=== PATIENT | female | born 1940 | race Caucasian/White ===

== ENCOUNTER 2017-11-05 11:52 | Emergency (ER) | payer MEDICARE, BC, OTHER ==
--- NOTE | 2017-11-05 12:19 | Emergency Department Record ---
History of Present Illness - General Chief complaint: Flu Like Symptoms Stated complaint: CONGESTION/BODY ACHES/SORE THROAT Time Seen by Provider: 11/05/17 12:03 Source: Patient Mode of Arrival: Ambulatory Limitations: No limitations - History of Present Illness Initial comments: The patient is here due to having a cough, nasal congestion, ST, runny nose and body aches for 5 days. She denies any fever or SOB but does have a SHARPE with the cough. MD Complaint: Generalized weakness Onset/Timin -: Days(s) Severity: Moderate Severity scale (1-10): 5 Quality: Aching Consistency: Constant - Gordon Coma Scale Eye Response: (4) Open spontaneously Motor Response: (6) Obeys commands Verbal Response: (5) Oriented Gordon Total: 15 - Related Data Home Medications Medication Instructions Recorded Confirmed Last Taken Bimatoprost [Lumigan] 2.5 ml OP DAILY 11/05/17 11/05/17 1 Day Ago ~11/04/17 Previous Rx's Medication Instructions Recorded Oseltamivir Phosphate [Tamiflu] 75 mg PO BID #10 capsule 11/05/17 Allergies Allergy/AdvReac Type Severity Reaction Status Date / Time azithromycin Allergy VOMITING Verified 11/05/17 12:03 [From Zithromax Z-James] clarithromycin [From Biaxin] Allergy PT UNSURE Verified 11/05/17 12:03 OF REACTION sulfamethoxazole Allergy SWELLING Verified 11/05/17 12:03 [From Bactrim] OF THE LIPS trimethoprim [From Bactrim] Allergy SWELLING Verified 11/05/17 12:03 OF THE LIPS Travel Screening - Travel/Exposure Within Last 30 Days Have you traveled within the last 30 days?: No - Travel/Exposure Within Last Year Have you traveled outside the [place] in the last year?: No - Additonal Travel Details Have you been exposed to anyone with a communicable illness?: No - Travel Symptoms Symptom Screening: None Review of Systems Constitutional: Reports: Malaise. Denies: Chills, Fever Eyes: Denies: Eye discharge ENT: Reports: Congestion Respiratory: Reports: Cough. Denies: Dyspnea Past Medical History - SOCIAL HISTORY Smoking Status: Never smoker Alcohol Use: None Drug Use: None - RESPIRATORY Hx Respiratory Disorders: No - CARDIOVASCULAR Hx Cardio Disorders: No - NEURO Hx Neuro Disorders: No - GI Hx GI Disorders: Yes Hx of Polyps: Yes - Hx Genitourinary Disorders: No - ENDOCRINE Hx Endocrine Disorders: No - MUSCULOSKELETAL Hx Musculoskeletal Disorders: Yes Hx Arthritis: Yes - PSYCH Hx Psych Problems: No - HEMATOLOGY/ONCOLOGY Hx Hematology/Oncology Disorders: Yes Hx Cancer: Yes (skin cancer-nose) Comment:: Squamous cell Family Medical History Any Significant Family History?: Yes Hx Cancer: Mother, Brother/Sister *Cancer Comment: Colon Physical Exam - General General Appearance: Alert, Oriented x3, Cooperative, No acute distress - Head Head exam: Atraumatic, Normocephalic, Normal inspection - Eye Eye exam: Normal appearance, PERRL - ENT Throat exam: Tonsillar erythema. negative: Normal inspection, Tonsillomegaly, Tonsillar exudate - Neck Neck exam: Normal inspection, Full ROM. negative: Tenderness - Respiratory Respiratory exam: Normal lung sounds bilaterally. negative: Respiratory distress - Cardiovascular Cardiovascular Exam: Regular rate, Normal rhythm, Normal heart sounds - GI/Abdominal GI/Abdominal exam: Soft, Normal bowel sounds. negative: Tenderness - Extremities Extremities exam: Normal inspection, Full ROM, Normal capillary refill. negative: Tenderness Course Vital Signs 11/05/17 11:55 Temperature 98.6 F Pulse Rate 65 Respiratory 18 Rate Blood Pressure 154/83 Pulse Ox 98 - Reevaluation(s) Reevaluation #1: The patient is doing very well at this time. I did discuss the positive Flu B with the patient and the neg CXR. I also did discuss the case with Dr. Lau and he would like the patient to be prescribed Tamiflu. 11/05/17 13:27 Medical Decision Making - Data Complexity MDM Data: Labs Ordered and/or Reviewed (Flu: B +), X-Ray Ordered and/or Reviewed - Radiology Data Radiology results: Report reviewed (CXR: Neg) Disposition Disposition: Discharge Clinical Impression: Influenza B Disposition: Home, Self-Care Condition: (2) Stable Instructions: Influenza (ED) Additional Instructions: Please drink plenty of fluids and take the Tamiflu as directed. Use Tylenol and Motrin for pain and fever. Please see your PCP in 2-3 days and return to the ER for any worsening symptoms. Prescriptions: Oseltamivir Phosphate [Tamiflu] 75 mg PO BID #10 capsule Forms: Patient Portal Access Time of Disposition: 13:26 Quality - Quality Measures Quality Measures: N/A - Blood Pressure Screening View Details: Yes Does Patient Have Any of the Following: No Blood Pressure Classification: Pre-Hypertensive BP Reading Systolic Measurement: 154 Diastolic Measurement: 83 Screening for High Blood Pressure: < Pre-Hypertensive BP, F/U Documented > [ G8950] Pre-Hypertensive Follow-up Interventions: Referral to alternative/primary care provider.
[2017-11-05 12:22] LABS: INFLUENZA A NEGATIVE (NEGATIVE); INFLUENZA B POSITIVE (NEGATIVE)
--- NOTE | 2017-11-06 08:44 | RADIOLOGY REPORT ---
EXAM: CHEST, TWO VIEWS HISTORY: COUGH. TESTED POSITIVE FOR INFLUENZA B. TECHNIQUE: Upright PA and lateral views of the chest were obtained. Comparison: None. FINDINGS: The heart is not enlarged and the pulmonary vasculature is nondilated. The thoracic aorta is tortuous and atherosclerotic. The lungs and pleural spaces are clear. The lungs do appear mildly hyperinflated consistent with COPD. Mild degenerative changes scattered within the visualized spine. There is dextroconvex scoliosis of the lumbar spine. IMPRESSION: HYPERINFLATION OF THE LUNGS CONSISTENT WITH COPD. NO LUNG CONSOLIDATION, PLEURAL EFFUSION OR PNEUMOTHORAX. JOB NUMBER: [id number] [facility]
== END 2017-11-05 13:47 | disposition home or self-care (01) ==
LOC: ER 11:52
DX: J10.1 Influenza due to other identified influenza virus with other respiratory manifestations (principal); R53.1 Weakness; R51 Headache; J44.9 Chronic obstructive pulmonary disease, unspecified
CPT/HCPCS: 71046; 87400; 99283; 99284

== ENCOUNTER 2017-11-10 12:52 | Emergency (ER) | payer MEDICARE, BC, OTHER ==
--- NOTE | 2017-11-10 13:12 | Emergency Department Record ---
History of Present Illness - General Chief complaint: Flu Like Symptoms Stated complaint: FLU SYMPTOMS Time Seen by Provider: 11/10/17 13:08 Source: Patient Mode of Arrival: Ambulatory Limitations: No limitations - History of Present Illness Initial comments: The patient is here due to not feeling well for the last 4-5 days. She was diagnosed with Influenza 5 days ago and started Tamiflu then. About 3 days ago she began to feel very nauseated and then had a lot of vomiting and diarrhea on Wed 2 days ago. Since she has not been able to eat or drink much and is getting very weak. The patient states she no longer is coughing but now has developed mild diffuse abdominal cramping and intermittent pain. She has lost about 12 pounds since this all started and now is also very fatigued. MD Complaint: Generalized weakness Onset/Timin -: Days(s) Location: Generalized Consistency: Constant Improves with: None Worsens with: None Associated Symptoms: Fever/chills, Nausea/vomiting - Glen Coma Scale Verbal Response: (5) Oriented - Related Data Previous Rx's Medication Instructions Recorded Oseltamivir Phosphate [Tamiflu] 75 mg PO BID #10 capsule 11/05/17 Ondansetron [Zofran Odt] 4 mg SL .Q4-6H PRN #12 tab.rapdis 11/10/17 Allergies Allergy/AdvReac Type Severity Reaction Status Date / Time azithromycin Allergy VOMITING Verified 11/10/17 13:09 [From Zithromax Z-James] clarithromycin [From Biaxin] Allergy PT UNSURE Verified 11/10/17 13:09 OF REACTION sulfamethoxazole Allergy SWELLING Verified 11/10/17 13:09 [From Bactrim] OF THE LIPS trimethoprim [From Bactrim] Allergy SWELLING Verified 11/10/17 13:09 OF THE LIPS Travel Screening - Travel/Exposure Within Last 30 Days Have you traveled within the last 30 days?: No - Travel/Exposure Within Last Year Have you traveled outside the [place] in the last year?: No - Additonal Travel Details Have you been exposed to anyone with a communicable illness?: No - Travel Symptoms Symptom Screening: None Review of Systems Constitutional: Denies: Chills, Fever Eyes: Denies: Eye discharge ENT: Denies: Congestion Respiratory: Denies: Cough, Dyspnea Past Medical History - SOCIAL HISTORY Smoking Status: Never smoker Alcohol Use: Occasional Drug Use: None - RESPIRATORY Hx Respiratory Disorders: No - CARDIOVASCULAR Hx Cardio Disorders: No - NEURO Hx Neuro Disorders: No - GI Hx GI Disorders: Yes Hx of Polyps: Yes - Hx Genitourinary Disorders: No - ENDOCRINE Hx Endocrine Disorders: No - MUSCULOSKELETAL Hx Musculoskeletal Disorders: Yes Hx Arthritis: Yes - PSYCH Hx Psych Problems: No - HEMATOLOGY/ONCOLOGY Hx Hematology/Oncology Disorders: Yes Hx Cancer: Yes (skin cancer-nose) Comment:: Squamous cell Family Medical History Any Significant Family History?: No Hx Cancer: Mother, Brother/Sister *Cancer Comment: Colon Physical Exam - General General Appearance: Alert, Oriented x3, Cooperative, No acute distress - Head Head exam: Atraumatic, Normocephalic, Normal inspection - Eye Eye exam: Normal appearance, PERRL - Neck Neck exam: Normal inspection, Full ROM. negative: Tenderness - Respiratory Respiratory exam: Normal lung sounds bilaterally. negative: Respiratory distress - Cardiovascular Cardiovascular Exam: Regular rate, Normal rhythm, Normal heart sounds - GI/Abdominal GI/Abdominal exam: Soft, Normal bowel sounds, Tenderness (There is very mild upper abdominal tenderness but no guarding or rebound and the abdomen is very soft.). negative: Rebound, Rigid - Extremities Extremities exam: Normal inspection, Full ROM, Normal capillary refill. negative: Tenderness - Neurological Neurological exam: Alert. negative: Motor sensory deficit Course Vital Signs 11/10/17 13:03 Temperature 97.3 F L Pulse Rate 50 L Respiratory 14 Rate Blood Pressure 158/73 Pulse Ox 98 - Reevaluation(s) Reevaluation #1: The patient is doing a lot better at this time. She denies any nausea, vomiting , or any abdominal pain. On exam her abdomen is very soft and nontender in all 4 quads. I did discuss the normal blood work with the patient but we still are waiting on her urine test. I did discuss the case with Dr. Lau and he agrees with the plan and he can see her next week if needed. 11/10/17 14:52 11/10/17 15:11 Medical Decision Making - Lab Data Result diagrams: 11/10/17 13:34 11/10/17 13:34 Disposition Disposition: Discharge Clinical Impression: Dehydration Disposition: Home, Self-Care Condition: (2) Stable Instructions: Dehydration (ED) Additional Instructions: Please use Zofran for nausea if needed. Continue your regular medicines and see your PCP if not better by Monday. Return to the ER for any worsening symptoms or nausea, vomiting, or diarrhea. Prescriptions: Ondansetron [Zofran Odt] 4 mg SL .Q4-6H PRN #12 tab.rapdis PRN Reason: Nausea Forms: Patient Portal Access Time of Disposition: 15:10 Quality - Quality Measures Quality Measures: N/A - Blood Pressure Screening View Details: Yes Does Patient Have Any of the Following: No Blood Pressure Classification: Hypertensive Reading Systolic Measurement: 153 Diastolic Measurement: 69 Screening for High Blood Pressure: < Pre-Hypertensive BP, F/U Documented > [ G8950] Pre-Hypertensive Follow-up Interventions: Referral to alternative/primary care provider.
[2017-11-10] MEDS ORDERED: ONDANSETRON HCL IV 4 MG/2 ML VIAL IV ONE (13:15)
[2017-11-10] MEDS ORDERED: 0.9 % SODIUM CHLORIDE 1,000 ML BAG IV ONE ×2 (13:15→14:52)
[2017-11-10 13:43] LABS: BASO % 0.3 % (0-6); EOS % 0.2 % (0-6); GRAN % 51.5 % (47-80); HEMATOCRIT 42.4 % (35.0-47.0); HEMOGLOBIN 14.1 gm/dl (11.6-16.0); LYMPH % 39.1 % (16-45); MEAN CORPUSCULAR HEMOGLOBIN 29.9 pg (27-33); MEAN CORPUSCULAR HGB CONC 33.3 g/dl (32-36); MEAN PLATELET VOLUME 10.3 fl (7.4-10.4); MONO % 8.9 % (0-9); PLATELET COUNT 240 K/uL (130-400); RED BLOOD COUNT 4.71 M/uL (3.80-5.40); WHITE BLOOD COUNT W/O DIFF 5.9 K/uL (4.2-12.2)
[2017-11-10 13:55] LABS: BLOOD UREA NITROGEN 17 mg/dL (8-23); CREATININE 0.7 mg/dL (0.5-0.9); EST GLOMERULAR FILTRATION RATE > 60 mL/min
[2017-11-10 13:56] LABS: TOTAL PROTEIN 7.3 g/dL (6.6-8.7)
[2017-11-10 13:58] LABS: GLUCOSE,RANDOM 96 mg/dL (74-109)
[2017-11-10 14:00] LABS: ALT/SGPT 14 U/L (<33)
[2017-11-10 14:01] LABS: ALBUMIN 4.2 g/dL (4.0-5.0); ALKALINE PHOSPHATASE 41 U/L (35-104); AST/SGOT 25 U/L (10.0-35.0); BILIRUBIN,DIRECT < 0.2 mg/dL (0-0.3); LIPASE 52 U/L (13-60)
[2017-11-10 14:50] LABS: URINE APPEARANCE CLOUDY; URINE BILIRUBIN SMALL (NEGATIVE); URINE BLOOD TRACE-I (NEGATIVE); URINE COLOR YELLOW; URINE GLUCOSE (UA) NEGATIVE (NEGATIVE); URINE KETONE 40 mg/dL (NEGATIVE); URINE LEUKOCYTE ESTERASE NEGATIVE (NEGATIVE); URINE NITRITE NEGATIVE (NEGATIVE); URINE PROTEIN TRACE (NEGATIVE)
[2017-11-10 15:01] LABS: URINE BACTERIA NONE SEEN; URINE RBC 0 - 2 (NONE SEEN); URINE WBC NONE SEEN (0-2/hpf)
== END 2017-11-10 15:20 | disposition home or self-care (01) ==
LOC: ER 12:52
DX: E86.0 Dehydration (principal); R11.2 Nausea with vomiting, unspecified; R53.1 Weakness; R10.10 Upper abdominal pain, unspecified
CPT/HCPCS: 99284 ×2; 96374; 96361; 83690; 85025; 80076; 80048; 81001; J2405; J7030

== ENCOUNTER 2018-04-06 22:29 | Emergency (ER) | payer MEDICARE, BC, OTHER ==
--- NOTE | 2018-04-06 22:49 | Emergency Department Record ---
History of Present Illness - General Chief Complaint: Dizziness Stated Complaint: VOMITING Time Seen by Provider: 04/06/18 22:43 Source: Patient Mode of Arrival: Wheelchair Limitations: No limitations - History of Present Illness Initial Comments: 78 yo female presents to ED for evaluation of nausea, vomiting, and dizziness following lumpectomy this afternoon. Patient reports that she felt ill following her surgery in the PACU area following her procedure, was kept approximately 4 hours for her dizziness symptoms following surgery. Patient reports that she was feeling better upon arriving home, ate some sherbet and began to have nausea and vomiting symptoms. Patient denies abdominal pain, fevers, chills, or recent illness. Patient does report that her symptoms are similar to previous episodes of vertigo. MD Complaint: Dizziness Onset/Timin -: Hour(s) Timing: Gradual onset Description: Lightheadedness, Nausea History of Same: Yes History of Trauma: No Severity: Moderate Improves With: Nothing Worsens With: Other (eating) Associated Symptoms: Denies other symptoms - Iron Coma Scale Eye Response: (4) Open spontaneously Motor Response: (6) Obeys commands Verbal Response: (5) Oriented Iron Total: 15 - Related Data Previous Rx's Medication Instructions Recorded Oseltamivir Phosphate [Tamiflu] 75 mg PO BID #10 capsule 11/05/17 Ondansetron [Zofran Odt] 4 mg SL .Q4-6H PRN #12 tab.rapdis 11/10/17 Meclizine HCl [Antivert] 25 mg PO Q8H PRN #20 tablet 04/06/18 Ondansetron [Zofran Odt] 4 mg PO Q8H PRN #20 tab.rapdis 04/06/18 Allergies Allergy/AdvReac Type Severity Reaction Status Date / Time azithromycin Allergy VOMITING Verified 04/06/18 22:32 [From Zithromax Z-James] clarithromycin [From Biaxin] Allergy PT UNSURE Verified 04/06/18 22:32 OF REACTION sulfamethoxazole Allergy SWELLING Verified 04/06/18 22:32 [From Bactrim] OF THE LIPS trimethoprim [From Bactrim] Allergy SWELLING Verified 04/06/18 22:32 OF THE LIPS Travel Screening - Travel/Exposure Within Last 30 Days Have you traveled within the last 30 days?: No - Travel Symptoms Symptom Screening: None Review of Systems Constitutional: Denies: Chills, Fever, Malaise, Night sweats Eyes: Denies: Eye discharge, Eye pain ENT: Denies: Congestion, Ear pain, Epistaxis Respiratory: Denies: Cough, Dyspnea Cardiovascular: Denies: Chest pain, Dyspnea on exertion Endocrine: Denies: Fatigue, Heat or cold intolerance Gastrointestinal: Reports: Nausea, Vomiting. Denies: Abdominal pain Genitourinary: Denies: Incontinence, Retention Skin: Denies: Bruising, Change in color Neurological: Reports: Vertigo. Denies: Abnormal gait, Confusion, Headache, Seizure Psychiatric: Denies: Anxiety Hematological/Lymphatic: Denies: Anemia, Blood Clots Past Medical History - SOCIAL HISTORY Smoking Status: Never smoker - RESPIRATORY Hx Respiratory Disorders: No - CARDIOVASCULAR Hx Cardio Disorders: Yes Comment:: high cholesterol - NEURO Hx Neuro Disorders: Yes Hx Dizziness: Yes (vertigo) Comment:: Shingles; Glaucoma - GI Hx GI Disorders: Yes Hx of Polyps: Yes - Hx Genitourinary Disorders: No - ENDOCRINE Hx Endocrine Disorders: No - MUSCULOSKELETAL Hx Musculoskeletal Disorders: Yes Hx Arthritis: Yes (osteoporosis) - PSYCH Hx Psych Problems: No - HEMATOLOGY/ONCOLOGY Hx Hematology/Oncology Disorders: Yes Hx Cancer: Yes (skin cancer-nose) Comment:: Squamous cell Family Medical History Any Significant Family History?: Yes Hx Cancer: Mother, Brother/Sister *Cancer Comment: Colon Physical Exam - General General Appearance: Alert, Oriented x3, Cooperative, Mild distress Limitations: No limitations - Head Head exam: Atraumatic, Normocephalic, Normal inspection Head exam detail: negative: Abrasion, Contusion, Madison's sign, General tenderness, Hematoma, Laceration - Eye Eye exam: Normal appearance. negative: Conjunctival injection, Periorbital swelling, Periorbital tenderness, Scleral icterus - ENT Ear exam: negative: Auricular hematoma, Auricular trauma Nasal Exam: negative: Active bleeding, Discharge, Dried blood, Foreign body Mouth exam: negative: Drooling, Laceration, Muffled voice, Tongue elevation - Neck Neck exam: Normal inspection. negative: Meningismus, Tenderness - Respiratory Respiratory exam: Normal lung sounds bilaterally. negative: Rales, Respiratory distress, Rhonchi, Stridor - Cardiovascular Cardiovascular Exam: Regular rate, Normal rhythm, Normal heart sounds - GI/Abdominal GI/Abdominal exam: Soft. negative: Rebound, Rigid, Tenderness - Rectal Rectal exam: Deferred - exam: Deferred - Extremities Extremities exam: Normal inspection. negative: Calf tenderness, Pedal edema, Tenderness - Back Back exam: Denies: CVA tenderness (R), CVA tenderness (L) - Neurological Neurological exam: Alert, Oriented X3. negative: Motor sensory deficit - Psychiatric Psychiatric exam: Normal affect, Normal mood - Skin Skin exam: Normal color, Other (3.5 cm incision site to the left axillary region as well as the 4.0 cm incision site to the left breast are well appearing on examination.). negative: Abrasion Type of lesion: negative: abrasion Course Vital Signs 04/06/18 22:34 Temperature 97.8 F Pulse Rate [ 56 L Pulse Ox Probe] Respiratory 20 Rate Blood Pressure 166/65 [Right Arm] Pulse Ox 99 - Reevaluation(s) Reevaluation #1: 04/06/18 23:23 Laboratory results were reviewed and are grossly unremarkable for an acute process. Medical Decision Making - Lab Data Result diagrams: 04/06/18 22:42 04/06/18 22:42 Disposition Disposition: Discharge Clinical Impression: Nausea & vomiting Qualifiers: Vomiting type: unspecified Vomiting Intractability: non-intractable Qualified Code(s): R11.2 - Nausea with vomiting, unspecified Disposition: Home, Self-Care Condition: (2) Stable Instructions: Acute Nausea and Vomiting (ED) Additional Instructions: Return to ED if your symptoms worsen or if you have any concerns. Zofran and Antivert as directed. Follow-up with your family doctor in 3-5 days as directed. Prescriptions: Meclizine HCl [Antivert] 25 mg PO Q8H PRN #20 tablet PRN Reason: Dizziness Ondansetron [Zofran Odt] 4 mg PO Q8H PRN #20 tab.rapdis PRN Reason: Nausea/Vomiting Forms: Patient Portal Access Time of Disposition: 23:44 Quality - Quality Measures Quality Measures: N/A - Blood Pressure Screening Does Patient Have Any of the Following: No Blood Pressure Classification: Pre-Hypertensive BP Reading Systolic Measurement: 133 Diastolic Measurement: 58 Screening for High Blood Pressure: < Pre-Hypertensive BP, F/U Documented > [ G8950] Pre-Hypertensive Follow-up Interventions: Referral to alternative/primary care provider.
[2018-04-06] MEDS ORDERED: MECLIZINE 25 MG TABLET PO ONE (22:50)
[2018-04-06] MEDS ORDERED: ONDANSETRON HCL IV 4 MG/2 ML VIAL IVP ONE (22:50)
[2018-04-06 22:57] LABS: BASO % 0.1 % (0-6); GRAN % 74.5 % (47-80); HEMATOCRIT 40.4 % (35.0-47.0); LYMPH % 22.9 % (16-45); MEAN CELL VOLUME 93.7 fl (81-97); MEAN CORPUSCULAR HEMOGLOBIN 30.2 pg (27-33); MEAN CORPUSCULAR HGB CONC 32.2 g/dl (32-36); MONO % 2.5 % (0-9); PLATELET COUNT 304 K/uL (130-400); RED BLOOD COUNT 4.31 M/uL (3.80-5.40); RED CELL DISTRIBUTION WIDTH 13.2 % (11.5-14.5)
[2018-04-06] MEDS ORDERED: 0.9 % SODIUM CHLORIDE 1000ML 1,000 ML IV SCH (23:00)
[2018-04-06 23:10] LABS: BLOOD UREA NITROGEN 16 mg/dL (8-23); CREATININE 0.6 mg/dL (0.5-0.9); EST GLOMERULAR FILTRATION RATE > 60 mL/min
[2018-04-06 23:11] LABS: TOTAL PROTEIN 7.1 g/dL (6.6-8.7)
[2018-04-06 23:13] LABS: GLUCOSE,RANDOM 144 mg/dL (74-109)
[2018-04-06 23:16] LABS: ALB/GLOB RATIO 1.4 (1.1-1.8); ALBUMIN 4.1 g/dL (4.0-5.0); ALKALINE PHOSPHATASE 41 U/L (35-104); ALT/SGPT 13 U/L (<33); AST/SGOT 27 U/L (10.0-35.0)
== END 2018-04-06 23:55 | disposition home or self-care (01) ==
LOC: ER 22:29
DX: R11.2 Nausea with vomiting, unspecified (principal); E78.00 Pure hypercholesterolemia, unspecified; R42 Dizziness and giddiness
CPT/HCPCS: 80053; 85025; 96361; 96374; 99283; J2405; J7030

== ENCOUNTER 2019-03-08 13:25 | Emergency (ER) | payer MEDICARE, BC, OTHER ==
[2019-03-08] MEDS ORDERED: ACETAMINOPHEN 1,000 MG/100 ML BTL IVPB ONE (13:47)
[2019-03-08] MEDS ORDERED: 0.9 % SODIUM CHLORIDE 1000ML 1,000 ML IV ONE ×2 (13:47→17:13)
--- NOTE | 2019-03-08 13:51 | Emergency Department Record ---
History of Present Illness - General Chief Complaint: Abdominal Pain Stated Complaint: STOMACH PAINS Time Seen by Provider: 03/08/19 13:42 Source: Patient Mode of Arrival: Wheelchair Limitations: No limitations - History of Present Illness Initial Comments: 79 yo female presents with low abdominal pain the last two hours. The pain is across the lower abdomen without any pain above. No vomiting or diarrhea. No fever. She has some low back pain as well. She has had multiple surgeries in the past for ovarian cysts many years ago. She has had an appendectomy as well. She has known gall stones and diverticulosis. PCP is Dr Lau. No similar zohreh n recently. No dysuria. No hematuria. MD Complaint: Abdominal pain Onset/Timin -: Hour(s) Location: Periumbilical, LLQ, RLQ Radiation: Back, LLQ, RLQ Migration to: LLQ, RLQ Severity: Severe Severity scale (1-10): 10 Quality: Sharp Consistency: Constant Improves With: Nothing Worsens With: Nothing Associated Symptoms: Denies other symptoms - Related Data Allergies Allergy/AdvReac Type Severity Reaction Status Date / Time azithromycin Allergy VOMITING Unverified 07/13/18 12:48 [From Zithromax Z-James] clarithromycin [From Biaxin] Allergy PT UNSURE Unverified 07/13/18 12:48 OF REACTION sulfamethoxazole Allergy SWELLING Unverified 07/13/18 12:48 [From Bactrim] OF THE LIPS trimethoprim [From Bactrim] Allergy SWELLING Unverified 07/13/18 12:48 OF THE LIPS Travel Screening - Travel/Exposure Within Last 30 Days Have you traveled within the last 30 days?: No Review of Systems Constitutional: Denies: Chills, Fever, Malaise, Weakness Eyes: Denies: Eye discharge ENT: Denies: Congestion, Throat pain Respiratory: Denies: Cough, Dyspnea, Hemoptysis, Stridor, Wheezes Cardiovascular: Denies: Chest pain, Palpitations, Syncope Endocrine: Denies: Fatigue, Polydipsia, Polyuria Gastrointestinal: Reports: Abdominal pain. Denies: Constipation, Diarrhea, Hematemesis, Hematochezia, Melena, Nausea, Vomiting Genitourinary: Denies: Dysuria, Urgency Musculoskeletal: Reports: Back pain. Denies: Arthralgia, Joint swelling, Myalgia Skin: Denies: Bruising, Change in color, Rash Neurological: Denies: Headache Psychiatric: Denies: Anxiety Hematological/Lymphatic: Denies: Easy bleeding, Easy bruising Past Medical History - SOCIAL HISTORY Smoking Status: Never smoker - RESPIRATORY Hx Respiratory Disorders: No - CARDIOVASCULAR Hx Cardio Disorders: Yes Comment:: high cholesterol - NEURO Hx Neuro Disorders: Yes Hx Dizziness: Yes (vertigo) Comment:: Shingles; Glaucoma - GI Hx GI Disorders: Yes Hx of Polyps: Yes - Hx Genitourinary Disorders: No - ENDOCRINE Hx Endocrine Disorders: No - MUSCULOSKELETAL Hx Musculoskeletal Disorders: Yes Hx Arthritis: Yes (osteoporosis) - PSYCH Hx Psych Problems: No - HEMATOLOGY/ONCOLOGY Hx Hematology/Oncology Disorders: Yes Hx Cancer: Yes (skin cancer-nose) Comment:: Squamous cell Family Medical History Any Significant Family History?: Yes Hx Cancer: Mother, Brother/Sister *Cancer Comment: Colon Physical Exam - General General Appearance: Alert, Oriented x3, Cooperative, No acute distress Limitations: No limitations - Head Head exam: Atraumatic, Normal inspection - Eye Eye exam: Normal appearance, PERRL. negative: Conjunctival injection, Scleral icterus - ENT ENT exam: Normal exam Ear exam: Normal external inspection Nasal Exam: Normal inspection Mouth exam: Normal external inspection - Neck Neck exam: Normal inspection - Respiratory Respiratory exam: Normal lung sounds bilaterally. negative: Respiratory distress - Cardiovascular Cardiovascular Exam: Regular rate, Normal rhythm, Normal heart sounds - GI/Abdominal GI/Abdominal exam: Soft, Tenderness (Very soft abdomen. She is tender across the lower abdomen, no masses. She is not tender above the umbilicus). negative: Distended, Guarding, Rebound, Rigid - Rectal Rectal exam: Deferred - exam: Deferred - Extremities Extremities exam: Normal inspection. negative: Pedal edema, Tenderness - Back Back exam: Denies: CVA tenderness (R), CVA tenderness (L), Paraspinal tenderness - Neurological Neurological exam: Alert, Oriented X3 - Psychiatric Psychiatric exam: Anxious, Normal affect, Normal mood. negative: Agitated - Skin Skin exam: Dry, Intact, Normal color, Warm Course Vital Signs 03/08/19 13:37 Temperature 97.5 F L Pulse Rate 61 Respiratory 20 Rate Blood Pressure 220/91 Pulse Ox 100 - Reevaluation(s) Reevaluation #1: The labs results were reviewed There are no acute significant abnormalities of the CBC There are no acute significant abnormalities of the CMP 03/08/19 14:40 03/08/19 16:[address] scan was consistent with a mid small bowel obstruction with a sharp transition zone, diverticulosis without diverticulitis. The patient and daughter were given the results. I recommend admission and surgery consultation. Dr Santamaria was contacted and the CT findings were discussed. Given there is no surgery rounding at [facility] on the weekend he requests [place] [facility]. The patient agrees with transfer at this time [place] [facility]. 03/08/19 18:15 Medical Decision Making - Lab Data Result diagrams: 03/08/19 13:45 03/08/19 13:45 Disposition Disposition: Transfer Disposition: Acute Care Hospital Transfer Transfer [place]: [facility] [place] For Transfer: [facility] Accepting Physician: Hina Time Discussed w/Accepting Physician: 17:00 Condition: (2) Stable Forms: Patient Portal Access Time of Disposition: 17:00 Quality - Quality Measures Quality Measures: N/A - Blood Pressure Screening Does Patient Have Any of the Following: No Blood Pressure Classification: Hypertensive Reading Systolic Measurement: 188 Diastolic Measurement: 77 Screening for High Blood Pressure: < Pre-Hypertensive BP, F/U Documented > [G8950] Pre-Hypertensive Follow-up Interventions: Referral to alternative/primary care provider.
[2019-03-08 14:01] LABS: EOS % 2.9 % (0-6); GRAN % 48.8 % (47-80); HEMATOCRIT 40.2 % (35.0-47.0); HEMOGLOBIN 12.6 gm/dl (11.6-16.0); LYMPH % 35.4 % (16-45); MEAN CELL VOLUME 96.6 fl (81-97); MEAN CORPUSCULAR HEMOGLOBIN 30.3 pg (27-33); MEAN CORPUSCULAR HGB CONC 31.3 g/dl (32-36); MEAN PLATELET VOLUME 9.8 fl (7.4-10.4); MONO % 11.9 % (0-9); PLATELET COUNT 257 K/uL (130-400); RED BLOOD COUNT 4.16 M/uL (3.80-5.40); RED CELL DISTRIBUTION WIDTH 14.1 % (11.5-14.5); URINE APPEARANCE CLEAR; URINE BILIRUBIN NEGATIVE (NEGATIVE); URINE BLOOD NEGATIVE (NEGATIVE); URINE COLOR YELLOW; URINE GLUCOSE (UA) NEGATIVE (NEGATIVE); URINE KETONE TRACE (NEGATIVE); URINE NITRITE NEGATIVE (NEGATIVE); URINE PROTEIN NEGATIVE (NEGATIVE); URINE UROBILINOGEN 0.2 E.U./dL (0.20 - 1.00); WHITE BLOOD COUNT W/O DIFF 6.2 K/uL (4.2-12.2)
[2019-03-08 14:14] LABS: BLOOD UREA NITROGEN 17 mg/dL (8-23); CREATININE 0.7 mg/dL (0.5-0.9); EST GLOMERULAR FILTRATION RATE > 60 mL/min; TOTAL PROTEIN 7.1 g/dL (6.6-8.7)
[2019-03-08 14:15] LABS: LIPASE 33 U/L (13-60)
[2019-03-08 14:16] LABS: GLUCOSE,RANDOM 84 mg/dL (74-109)
[2019-03-08 14:18] LABS: URINE LEUKOCYTE ESTERASE TRACE (NEGATIVE)
[2019-03-08 14:19] LABS: ALB/GLOB RATIO 1.6 (1.1-1.8); ALBUMIN 4.4 g/dL (4.0-5.0); ALKALINE PHOSPHATASE 50 U/L (35-104); ALT/SGPT 13 U/L (<33); AST/SGOT 20 U/L (10.0-35.0); URINE AMORPHOUS SEDIMENT 3+; URINE BACTERIA FEW; URINE RBC 0 - 2 (NONE SEEN)
[2019-03-08] MEDS ORDERED: MORPHINE SULFATE 10 MG/ML VIAL IVP ONE ×2 (14:49→17:13)
--- NOTE | 2019-03-11 18:58 | CT SCAN REPORT ---
EXAM: CT SCAN ABDOMEN/PELVIS W CONTRAST HISTORY: SEVERE LOWER ABDOMINAL PAIN. BREAST CARCINOMA STATUS POST LUMPECTOMY, RADIATION THERAPY, AND CHEMOTHERAPY. PRIOR HYSTERECTOMY. TECHNIQUE: Helical CT examination of the abdomen and pelvis is performed following oral and intravenous contrast administration with 100 mL of Omnipaque- 300 utilized. Delayed images through the kidneys are also obtained. COMPARISON: Barium enema dated 04/18/2016. FINDINGS: There is minor dependent atelectasis in each lung base. The lung bases are otherwise clear. No pleural or pericardial effusion. The heart is nonenlarged. There is mild atherosclerotic calcification of the visualized distal portion of the right coronary artery. Bilateral breast implants are identified. There are likely fold within the inferior aspects of the implants rather than the result of implant rupture. The implants are incompletely imaged. No focal abnormality demonstrated in the liver, spleen, pancreas, adrenal glands, nor kidneys. The pancreatic duct is visualized, though does not appear grossly dilated. There is a tiny luminal filling defect within the gallbladder as seen on series 3, image #64 consistent with polyp, sludge ball, or gallstone. No gallbladder wall thickening. No biliary ductal dilatation. No intraabdominal nor retroperitoneal lymphadenopathy. There is diffuse atherosclerosis without aneurysmal dilatation of the abdominal aorta. The iliac arteries are tortuous. The uterus is surgically absent. No definite pelvic mass, lymphadenopathy, or free pelvic fluid. No intrinsic urinary bladder abnormality is seen. There is diverticulosis scattered throughout the colon, most pronounced distally, where it is moderate in degree. No definite evidence of diverticulitis. There are multiple loops of dilated mid small bowel with sharp zone of transition in the left lower quadrant. This is consistent with obstruction. No gross wall thickening nor extraluminal air. No abscess. The etiology of the obstruction is indeterminate. No definite mass is seen in this location. Adhesion would be the most likely etiology. The small bowel distal to this is normal in caliber. No lytic or blastic bone lesion. There are degenerative changes scattered throughout the visualized spine associated with moderate dextroconvex scoliosis. A chronic-appearing superior endplate deformity involving the left aspect of the L2 vertebral body is present. IMPRESSION: 1. FINDINGS CONSISTENT WITH MECHANICAL MID SMALL BOWEL OBSTRUCTION WITH SHARP ZONE OF TRANSITION IN THE LEFT LOWER QUADRANT. THE ETIOLOGY OF THE OBSTRUCTION IS INDETERMINATE. NO DEFINITE MASS IS SEEN IN THIS LOCATION AND ADHESION WOULD BE THE MOST LIKELY ETIOLOGY. NO ASSOCIATED EXTRALUMINAL AIR NOR ABSCESS. 2. COLONIC DIVERTICULOSIS WITHOUT EVIDENCE OF DIVERTICULITIS. 3. STATUS POST HYSTERECTOMY. 4. TINY LUMINAL FILLING DEFECT IN THE GALLBLADDER CONSISTENT WITH POLYP, ADHERENT STONE OR SLUDGE BALL. 5. BILATERAL BREAST IMPLANTS. JOB NUMBER: [id number] [facility]
== END 2019-03-08 17:52 | disposition short-term general hospital (02) ==
LOC: ER 13:25
DX: K56.609 Unspecified intestinal obstruction, unspecified as to partial versus complete obstruction (principal); K57.90 Diverticulosis of intestine, part unspecified, without perforation or abscess without bleeding
CPT/HCPCS: 99285 ×2; 96376; 96365; 96375; 83690; 85025; 80053; 81001; 74177; Q9967; J2270; J7030